=== PATIENT | female | born 1980 | race Hispanic/Latino ===

== ENCOUNTER → 2018-04-26 | Day surgery (SDC) | payer OTHER ==
[2018-04-23 15:58] LABS: BASOPHILS % 0.6 % (0.0-1.0); EOSINOPHILS # (AUTO) 0.2 (0.0-0.4); EOSINOPHILS % 2.9 % (0.0-6.0); HEMOGLOBIN 10.8 g/dL (12.0-16.0); LYMPHOCYTES # (AUTO) 1.7 (1.0-3.2); LYMPHOCYTES % 26.2 % (18.0-39.1); MEAN CORPUSCULAR HEMOGLOBIN 23.4 pg (28-32); MEAN CORPUSCULAR HGB CONC 31.8 g/dL (31-35); MEAN CORPUSCULAR VOLUME 73.8 fL (81-99); MONOCYTES # (AUTO) 0.4 (0.2-0.8); MONOCYTES % 5.9 % (4.4-11.3); NEUTROPHILS # (AUTO) 4.3 (2.1-6.9); NEUTROPHILS % 64.1 % (38.7-80.0); PLATELET COUNT 335 x10e3/uL (140-360); RED BLOOD COUNT 4.61 x10e6/uL (3.6-5.1); RED CELL DISTRIBUTION WIDTH 15.9 % (11.7-14.4)
[~2018-04-26] MED LIST: CIPRO500 MG PO; CYMBALTA30 MG PO; DICYCLOMINE HCL20 MG PO; FENTANYL CITRATE/PF 100MCG/2 ML INJ ONE; GLUCAGON FOR INJ 1 MG VIAL ONE; HYOSCYAMINE SULFATE 0.5 MG/ML AMP ONE; KETAMINE HCL INJ 50 MG/ML 10 ML VIAL ONE; KLONOPIN0.5 MG PO; LIDOCAINE HCL 2% LOCAL INJ 5 ML SDV VIAL INJ ONE; LORAZEPAM0.5 MG PO; METOCLOPRAMIDE HCL 10 MG/2ML VIAL ONE; MIDAZOLAM HCL 2 MG/2 ML VIAL ONE; PRILOSEC OTC20 MG PO; PROAIR HFA INH8.5 GM INH; PROPOFOL IV EMULSION 10 MG/ML 50 ML VIAL ONE; PROTONIX PO; SINGULAIR10 MG PO; ZOLOFT50 MG PO; ZOPENEX PO
--- OUTSIDE RECORDS SUMMARY | 2018-04-26 08:10 | XMS REPORT | Clinical Summary ---
Author Author [facility] Organization [facility] Address Unknown Phone Unavailable Care Team Providers Care Silo Operator Name Role Phone Liane Boogie MD PCP Allergies No Known Allergies Current Medications Prescription Sig. Disp. Refills Start End Date Status Date zaleplon (SONATA) 10 MG 09/14/20 Active capsule 17 pantoprazole (PROTONIX) 07/28/20 Active 40 MG EC tablet 17 montelukast (SINGULAIR) 07/24/20 Active 10 mg tablet 17 dicyclomine (BENTYL) 20 07/23/20 Active mg tablet 17 clonAZEPAM (KlonoPIN) 0.5 09/14/20 Active MG tablet 17 Active Problems Problem Noted Date Depression 09/23/2017 Gallstones 09/23/2017 GERD (gastroesophageal reflux disease) 06/04/2014 Extrinsic asthma 08/04/2007 Overview: Overview: ICD-10 Encounters Date Type Specialty Care Team Description 09/23/2017 Office Visit Obstetrics and Gynecology Barby Villegas MD Encounter for gynecological examination without abnormal finding (Primary Dx) 07/26/2017 [facility] Tay Boogie MD Breast pain Encounter Rao Tim MD 07/26/2017 [facility] Tay Boogie MD Breast pain Encounter Rao Tim MD 07/24/2017 [facility] Sharyn Boogie MD Breast pain ( Primary Dx) Orders after 04/25/2017 Family History Medical History Relation Name Comments Hypertension Maternal Grandmother Diabetes Mother Relation Name Status Comments Maternal Grandmother Mother Social History Tobacco Use Types Packs/Day Years Used Date Never Smoker Tobacco Cessation: Counseling Given: No Alcohol Use Drinks/Week oz/Week Comments No Sex Assigned at Date Recorded Not on file Last Filed Vital Signs Vital Sign Reading Time Taken Blood Pressure - - Pulse - - Temperature - - Respiratory Rate - - Oxygen Saturation - - Inhaled Oxygen - - Concentration 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 pap: NONE GIVEN Prev. bx: NONE GIVEN Source Cervix Statement of adequacy Comment: Satisfactory for evaluation. Endocervical/transformation zone component present. Age and/or menstrual status not provided Interpretation/result: Comment: Negative for intraepithelial lesion or malignancy. Comment Comment: This Pap test has been evaluated with computer assisted technology. [place] Comment: PMT, CT(ASCP) CT screening location: [address], [facility] [address] HPV mRNA e6/e7 Not Detected Not Detected Comment: This test was performed using the APTIMA HPV Assay ([employer] This assay detects E6/E7 viral messenger RNA (mRNA) from 14 high-risk HPV types (16,18,31,33,35,39,45,51,52,56,58,59,66,68). Chlamydia trachomatis NOT DETECTED NOT DETECTED RNA, TMA Neisseria gonorrhoeae NOT DETECTED NOT DETECTED RNA, TMA (Always message) Comment: This test was performed using the APTIMA COMBO2 Assay ([employer] The analytical performance characteristics of this assay, when used to test SurePath specimens have been determined by [facility]. Specimen Performing Laboratory [facility] * US Breast Complete Bilateral (07/26/2017 11:53 AM) Specimen Performing Laboratory [address] [address] Narrative PROCEDURES:MAMMO DIAGNOSTIC W CAD BILATERAL, US BREAST COMPLETE BILATERAL Computer aided detection was utilized for the interpretation. COMPARISON: None. This is baseline examination. CLINICAL HISTORY: 37-year-old female had presented to her primary care physician with an area of pain in the left lower inner breast. Physician feels palpable abnormalities bilaterally in the lower inner breast. FINDINGS: Breast density: There are scattered areas of fibroglandular density ( category B ). Mammography Findings: MLO and true lateral and CC views are performed. Palpable markers are placed in the right lower 6 o'clock and left lower 6-7 o'clock breast. No mammographic mass is identified. There is no suspicious mass, microcalcifications, or architectural distortion. Ultrasound Findings: Bilateral whole breast sonography (all 4 quadrants, retroareolar location, and axillae) was performed by the sonographerunder supervision of the interpreting radiologist. The breasts are homogeneously fatty. No sonographic mass lesions are identified bilaterally. I also personally scanned the areas of pain and questionable palpable lumps indicated by the patient in the lower inner breast bilaterally and these areas are sonographically normal. IMPRESSION: No mammographic or sonographic evidence of malignancy.Findings and recommendations were discussed with the patient. ASSESSMENT:BIRADS CATEGORY 1: NEGATIVE. RECOMMENDATIONS: In the absence of any clinical change, return to annual screening is recommended. NOTE: This facility is a designated [facility] ( [facility]) , meeting standards of accreditation in all modalities of breast imaging. This facility is accredited by [employer] for Mammography and BreastUltrasound. A negative x-ray report should not delay biopsy if a dominant or clinically suspicious mass is present. Not all cancers are identified by x-ray. [id number] * Mammo Diagnostic w Cad Bilateral (07/26/2017 11:35 AM) Specimen Performing Laboratory [address] [address] Narrative PROCEDURES:MAMMO DIAGNOSTIC W CAD BILATERAL, US BREAST COMPLETE BILATERAL Computer aided detection was utilized for the interpretation. COMPARISON: None. This is baseline examination. CLINICAL HISTORY: 37-year-old female had presented to her primary care physician with an area of pain in the left lower inner breast. Physician feels palpable abnormalities bilaterally in the lower inner breast. FINDINGS: Breast density: There are scattered areas of fibroglandular density ( category B ). Mammography Findings: MLO and true lateral and CC views are performed. Palpable markers are placed in the right lower 6 o'clock and left lower 6-7 o'clock breast. No mammographic mass is identified. There is no suspicious mass, microcalcifications, or architectural distortion. Ultrasound Findings: Bilateral whole breast sonography (all 4 quadrants, retroareolar location, and axillae) was performed by the sonographerunder supervision of the interpreting radiologist. The breasts are homogeneously fatty. No sonographic mass lesions are identified bilaterally. I also personally scanned the areas of pain and questionable palpable lumps indicated by the patient in the lower inner breast bilaterally and these areas are sonographically normal. IMPRESSION: No mammographic or sonographic evidence of malignancy.Findings and recommendations were discussed with the patient. ASSESSMENT:BIRADS CATEGORY 1: NEGATIVE. RECOMMENDATIONS: In the absence of any clinical change, return to annual screening is recommended. NOTE: This facility is a designated [facility] ( [facility]) , meeting standards of accreditation in all modalities of breast imaging. This facility is accredited by [employer] for Mammography and BreastUltrasound. A negative x-ray report should not delay biopsy if a dominant or clinically suspicious mass is present. Not all cancers are identified by x-ray. [id number] after 04/25/2017 Insurance Payer Benefit Subscriber ID Type Phone Address Plan / Group AETNA AETNA xxxxxxxxxx HMO HMO,POS,EP O, [facility]
--- NOTE | 2018-04-26 13:09 | Operative Report ---
DATE OF PROCEDURE: April 26, 2018 REFERRING PHYSICIAN: Dr. Sharyn Tang in [place]. PROCEDURE PERFORMED: 1. Esophagogastroduodenoscopy with biopsies and polypectomy. 2. Colonoscopy with polypectomy and biopsies. INDICATIONS FOR ESOPHAGOGASTRODUODENOSCOPY: Upper abdominal pain, nausea and vomiting. INDICATIONS FOR COLONOSCOPY: Colorectal cancer screening. Personal history of colon polyps. History of bright blood per rectum. MEDICATION: Patient was done under MAC. Please see anesthesiologist's note. PROCEDURE: With patient in the left lateral decubitus position, the flexible fiberoptic Olympus gastroscope was introduced into the esophagus under direct visualization without any difficulty. There was some patchy erythema noted in the distal esophagus. The scope was then advanced with ease into the stomach, and mucosa overlying the antrum and the body revealed some patchy erythema and low-grade edema, and biopsies were obtained and sent to stain for H. pylori. Several hyperplastic-appearing polyps were noted in the body of the stomach. Some were partially excised with the cold biopsy forceps. Pylorus appeared to be of normal contour and shape, was intubated with ease, and the scope was advanced all the way to the 2nd portion of the duodenum. The scope was then withdrawn slowly. Mucosa overlying the proximal 2nd portion and the duodenal bulb appeared to be within normal limits. The scope was then withdrawn back into the stomach and retroflexed, and mucosa overlying the fundus and the cardia appeared to be within normal limits. The scope was then straightened out. It was subsequently withdrawn. Patient tolerated the procedure well. IMPRESSION: 1. Distal esophagitis. 2. Gastritis biopsied. Biopsies sent to stain for H. pylori. 3. Gastric polyps. Some partially excised with the cold biopsy forceps. PLAN: Follow up histology. Continue Protonix 40 mg 1 p.o. a.c. b.i.d. Add Reglan 10 mg p.o. a.c. t.i.d. and nightly. Patient was then turned around and after adequate lubrication of the anal canal, a flexible fiberoptic Olympus colonoscope was inserted into the rectum with ease and advanced all the way to the cecum. The scope was then withdrawn slowly. Mucosa overlying the cecum and ascending colon appeared to be within normal limits. Some scattered diverticular disease was noted, but it was more prominent in the sigmoid colon. There were some patchy areas of erythema and low-grade edema noted in the sigmoid colon, and biopsies were obtained. One minute polyp was hot biopsied from the rectum. The scope was then retroflexed into the distal rectum and small internal hemorrhoids were noted, none of which was actively bleeding. The scope was then straightened out. It was subsequently withdrawn. Patient tolerated the procedure well. IMPRESSION: 1. Diverticulosis. 2. Mild patchy segmental colitis, sigmoid colon. 3. Rectal polyp, minute, hot biopsied. 4. Internal hemorrhoids, none actively bleeding. PLAN: Follow up histology. Initiate high-fiber low-fat diet. Initiate high-fiber supplement. Patient might benefit from a followup colonoscopy in 3 to 5 years. Job#: [id number] EV cc: SHARYN TANG MD
== END | disposition home or self-care (01) ==
LOC: OR 08:08
PROVIDERS: ATTEND Internal Medicine Gastroenterology
DX: Z12.11 Encounter for screening for malignant neoplasm of colon (principal); K62.1 Rectal polyp; K31.7 Polyp of stomach and duodenum; K29.70 Gastritis, unspecified, without bleeding; K50.10 Crohn's disease of large intestine without complications; K21.9 Gastro-esophageal reflux disease without esophagitis; K20.9 Esophagitis, unspecified; K57.30 Diverticulosis of large intestine without perforation or abscess without bleeding; K64.8 Other hemorrhoids; E78.5 Hyperlipidemia, unspecified; J45.909 Unspecified asthma, uncomplicated; F32.9 Major depressive disorder, single episode, unspecified; F41.0 Panic disorder [episodic paroxysmal anxiety]; Z01.812 Encounter for preprocedural laboratory examination; Z68.43 Body mass index [BMI] 50.0-59.9, adult; Z80.0 Family history of malignant neoplasm of digestive organs
CPT/HCPCS: 36415; 43239; 45380; 45384; 81025; 85025; J1610; J1980; J2001; J2250; J2765; 45378

== ENCOUNTER → 2021-06-10 | Day surgery (SDC) | payer BC, OTHER ==
[~2021-06-10] MED LIST changes: +EFFEXOR XR150 MG PO; -GLUCAGON FOR INJ 1 MG VIAL ONE; -HYOSCYAMINE SULFATE 0.5 MG/ML AMP ONE; +HYOSCYAMINE SULFATE 0.5 MG/ML INJ ONE; -LIDOCAINE HCL 2% LOCAL INJ 5 ML SDV VIAL INJ ONE; +METFORMIN HCL500 M2 PO; -METOCLOPRAMIDE HCL 10 MG/2ML VIAL ONE; +PROPOFOL IV EMULSION 10 MG/ML 20 ML VIAL ONE; -PROPOFOL IV EMULSION 10 MG/ML 50 ML VIAL ONE; +TOPIRAMATE25 MG PO
[2021-06-10 10:55] VITALS: BP 122/87
== END | disposition home or self-care (01) ==
LOC: OR 07:20
PROVIDERS: ATTEND Internal Medicine Gastroenterology
DX: K29.70 Gastritis, unspecified, without bleeding (principal); Z86.010 Personal history of colon polyps; K31.7 Polyp of stomach and duodenum; K20.90 Esophagitis, unspecified without bleeding; K21.9 Gastro-esophageal reflux disease without esophagitis; K57.30 Diverticulosis of large intestine without perforation or abscess without bleeding; K64.8 Other hemorrhoids; J45.909 Unspecified asthma, uncomplicated; E66.01 Morbid (severe) obesity due to excess calories; F41.9 Anxiety disorder, unspecified; F32.9 Major depressive disorder, single episode, unspecified; Z79.84 Long term (current) use of oral hypoglycemic drugs; Z68.43 Body mass index [BMI] 50.0-59.9, adult; Z80.0 Family history of malignant neoplasm of digestive organs
CPT/HCPCS: 43239; 45378; 81025; C9113; J1980; J2250; J2704; J3010